=== PATIENT | male | born 1995 | race Caucasian/White ===

== ENCOUNTER → 2019-05-26 | Emergency (ER) | payer SELFPAY ==
[~2019-05-26] VITALS: Ht 177.8 cm; Wt 74.8 kg
--- NOTE | 2019-05-26 14:33 | NUR ---
Dr. Jennings at the bedside for MSE.
--- NOTE | 2019-05-26 14:51 | NUR ---
Patient discharged to home in stable conditon. Written and verbal after care instructions given. Patient verbalized understanding of instructions.
== END | disposition home or self-care (01) ==
LOC: ER 13:44
DX: H60.11 Cellulitis of right external ear (principal); R19.09 Other intra-abdominal and pelvic swelling, mass and lump
CPT/HCPCS: A4663